=== PATIENT | female | born 1945 | race African-American/Black ===

== ENCOUNTER 2019-09-30 19:19 | Emergency (ER) | payer OTHER ==
[~2019-09-30] VITALS: Ht 167.6 cm; Wt 83.5 kg
[2019-09-30 21:26] LABS: ABSOLUTE NEUTROPHILS 2.4 thou/uL (1.4-8.2); EOSINOPHILS 1.3 % (0.0-3.0); HEMATOCRIT 42.8 % (37.0-47.0); HEMOGLOBIN 13.5 gm/dL (12.0-15.0); LYMPHOCYTES 37.3 % (24.0-44.0); MCH 27.1 pg (26.0-34.0); MCHC 31.6 g/dL (28.0-37.0); MCV 85.7 fL (80.0-100.0); MONOCYTES 9.9 % (1.0-8.0); PLATELET COUNT 245 thou/uL (150-400); POLYS 50.5 % (36.0-66.0); RBC 4.99 mil/uL (4.20-5.00); RDW 14.6 % (10.5-14.5); WBC 4.7 thou/uL (4.0-11.0)
[2019-09-30 21:38] LABS: ANION GAP 6 mmol/L (7-16); BUN 11 mg/dL (7-18); CALCIUM 9.1 mg/dL (8.5-10.1); CHLORIDE 104 mmol/L (98-107); CO2 30 mmol/L (21-32); CREATININE 0.8 mg/dL (0.6-1.0); GLUCOSE 89 mg/dL (74-106); POTASSIUM 5.1 mmol/L (3.5-5.1); SODIUM 140 mmol/L (136-145)
[2019-09-30 21:48] LABS: ALBUMIN 3.7 g/dL (3.4-5.0); SGOT 25 U/L (15-37); SGPT 17 U/L (30-65); TOTAL BILIRUBIN 0.3 mg/dL (<0.1-1.0); TOTAL PROTEIN 7.9 g/dL (6.4-8.2); TROPONIN-I <0.06 ng/mL (<0.06)
[2019-09-30 23:00] VITALS: BP 128/62
--- NOTE | 2019-10-01 12:34 | EKG ---
[facility] [place] [address] ELECTROCARDIOGRAM REPORT Name: LOTUS VEGA Room #: [facility]#: [id number] Admission: 09/30/19 Attend Phys: Discharge: 09/30/19 Date of : 47 Report #: [id number] THIS REPORT FOR: cc: FAM - No family physician/PCP FAM - No family physician/PCP Jelani Serrano MD [facility] THIS REPORT FOR: //name// [facility] ED Test Date: 2019-09-30 Test Time: 19:28:05 Pat Name: LOTUS VEGA Department: Room: Gender: F Civil Designer: ANISHA : 1945 Requested By: Alonso Perdomo Order Number: [id number] MD: Jelani Serrano Measurements Intervals [place] Rate: 70 P: -12 TN: 147 QRS: 27 QRSD: 94 T: 2 QT: 375 QTc: 405 Interpretive Statements Sinus rhythm Normal tracing No previous ECG available for comparison Electronically Signed On 10-01-2019 8:54:27 COMPATIBILITY TEST ENGINEER by Jelani Serrano [email or web address] <ELECTRONICALLY SIGNED> By: Jelani Serrano MD, [facility] 10/01/19 0854 27 27 Jelani Serrano MD, [facility] /EPI
== END 2019-09-30 23:00 | disposition home or self-care (01) ==
LOC: ER 19:19
PROVIDERS: Physician Assistant
DX: R07.9 Chest pain, unspecified (principal); F03.90 Unspecified dementia, unspecified severity, without behavioral disturbance, psychotic disturbance, mood disturbance, and anxiety; Z85.3 Personal history of malignant neoplasm of breast

== ENCOUNTER 2020-06-01 15:31 | Emergency (ER) | payer OTHER ==
[~2020-06-01] VITALS: Ht 162.6 cm; Wt 88.5 kg
--- NOTE | ~2020-06-01 | EMS ---
[address] [address] EMS Patient Care Report Name: LOTUS VEGA Room #: DEP ANDREEA Lombardi#: [id number] Admission: 06/01/20 Attend Phys: Discharge: 06/01/20 Date of : 47 Report #: [id number] THIS REPORT FOR: //name// Report Transmitted: 06/01/2020 20:54 EMS Care [place] [facility] [place] [id number] @ 06/01/2020 14:48 Incident Location [address] [place] [address] Patient LOTUS VEGA Female, 75 Years 1945 Patient Address [address] [place] [address] Patient History Dementia,Parkinson's Disease, Patient Allergies No known allergies, Patient Medications Trazodone, Chief Complaint GENERALIZED WEAKNESS Disposition Transported No Lights/[place] Dispatch Reason Falls Transported To [facility] Narrative DISPATCHED EMERGENT RESPONDED EMERGENT. ARRIVED ON SCENE WITHOUT INCIDENT. [facility] [address] [place] [address] EMS Patient Care Report Name: LOTUS VEGA [id number] Admission: 06/01/20 Attend Phys: Discharge: 06/01/20 Date of : 47 Report #: [id number] UPON ARRIVAL PATIENT IS FOUND ALERT BUT CONFUSED SEATED IN RESIDENCE WITH FAMILY AT SIDE. PATIENT REPORTED TO HAVE A HISTORY OF DEMENTIA AND CONFUSION AND IS PRESENTING HER BASELINE MENTATION. FAMILY STATED THAT PATIENT HAS BEEN HAVING SOME INCREASED SWELLING IN HER ANKLES SINCE SUNDAY. TODAY PATIENT WAS NOTED TO BE EXPERIENCING MORE GENERALIZED WEAKNESS THAN NORMAL AND HAS HAD 3 FALLS PRIOR TO CALLING EMS. PATIENT REPORTED TO HAVE NOT HIT HER HEAD, NO LOSS OF CONSCIOUSNESS, NO BLOOD THINNERS. PATIENTS FALLS HAVE BEEN IN HOME ON CARPET. FAMILY STATES THAT SHE HAS A HISTORY OF PARKISONS WELL. FAMILY IS REQUESTING SHE BE SEEN AT [facility] TODAY DUE TO THE INCREASED WEAKNESS AND SWELLING. PATIENT IS STROKE SCALE NEGATIVE AT THIS TIME. PATIENT DENIES ANY COMPLAINTS, DENIES CHEST PAIN SHORTNESS OF BREATH, DIZZINESS. PATIENT IS ASSISTED TO FEET AND WALK TO STRETCHER AT FRONT DOOR. PATIENT APPEARS TO BE AMBULATING WITHOUT DIFFICULTY. NO COMPLAINTS OR PAIN REPORTED WHEN WALKING. PATIENT SEATED ON STRETCHER, SECURED WITH ALL RESTRAINTS AND TAKEN TO AMBULANCE. PATIENT REPORTED THEY WOULD BE FOLLOWING TO FACILITY BY POV. EN ROUTE PATIENT DENIES ANY NEW COMPLAINTS. NO NEW COMPLAINTS OR SYMPTOMS OBSERVED UPON REASSESSMENT. VITALS MONITORED CONTINUOUSLY THROUGHOUT TRANSPORT. RADIO REPORT CALLED TO ED. UPON ARRIVAL PATIENT WAS TAKEN TO ED ROOM 5 WHERE PATIENT REPORT WAS GIVEN DIRECTLY TO RN AT BEDSIDE. PATIENT WAS ABLE TO SCOOT FROM STRETCHER TO BED WITHOUT DIFFICULTY. PATIENT CARE TRANSFERRED DIRECTLY TO RN AT BEDSIDE. PATIENT IN STABLE CONDITION AT TRANSFER OF CARE. Initial Vitals @15:09 @15:06P: 72,SpO2: 97, @15:16P: 97, @15:02P: 80,SpO2: 96, @15:11P: 88,SpO2: 100, @15:21P: 93, @14:57P: 78,R: 18,BP: 140/90,Pain: 0/10,GCS: 14,Glucose: 107,SpO2: 97,Revised Trauma: 12, @15:22P: 80,R: 18,BP: 166/80,GCS: 14,Glucose: 107,SpO2: 98,Revised Trauma: 12, @15:05P: 72,R: 18,BP: 142/76,Pain: 0/10,GCS: 14,SpO2: 98,Revised Trauma: 12, @15:02P: 79,SpO2: 96, Assessments @14:55MENTAL:Confused,Person Oriented,Place Oriented,SKIN:HEENT:Eyes: Left Pupil: 4-mm,Eyes: Right Pupil: 4-mm,Head/Face: No Abnormalities,Neck/Airway: No Abnormalities,LUNG SOUNDS:General: No Abnormalities,ABDOMEN:General: No Abnormalities,PELVIS//GI:No Abnormalities,EXTREMITIES:Left Leg: Edema,Right Leg: Edema,Capillary Refill: Left Upper: < 2 Sec,Left Arm: No Abnormalities,Right Arm: No Abnormalities,PULSE:Radial: 2+ Normal,NEURO:No [facility] [address] [place] [address] EMS Patient Care Report Name: LOTUS VEGA Room #: [facility] ANDREEA Lombardi#: [id number] Admission: 06/01/20 Attend Phys: Discharge: 06/01/20 Date of : 47 Report #: [id number] Abnormalities, Impression Generalized Weakness Procedures @15:00ALS AssessmentResponse: UnchangedSucceeded Timeline 14:47,Call Received 14:47,Psap Call 14:48,Dispatched 14:50,En Route 14:53,Initial Responder On Scene 14:53,On Scene 14:55,At Patient 14:57,BP: 140/90 M,PULSE: 78,RR: 18 R,SPO2: 97 Ox,ETCO2: ,B,PAIN: 0,GCS: 14, 15:00,ALS Assessment,Response: UnchangedSucceeded, 15:02,BP: / M,PULSE: 80,RR: R,SPO2: 96 Ox,ETCO2: ,BG: ,PAIN: ,GCS: , 15:02,BP: / M,PULSE: 79,RR: R,SPO2: 96 Ox,ETCO2: ,BG: ,PAIN: ,GCS: , 15:04,Depart Scene 15:05,BP: 142/76 M,PULSE: 72,RR: 18 R,SPO2: 98 Ox,ETCO2: ,BG: ,PAIN: 0,GCS: 14, 15:06,BP: / M,PULSE: 72,RR: R,SPO2: 97 Ox,ETCO2: ,BG: ,PAIN: ,GCS: , 15:09,BP: / M,PULSE: ,RR: R,SPO2: Ox,ETCO2: ,BG: ,PAIN: ,GCS: , 15:11,BP: / M,PULSE: 88,RR: R,SPO2: 100 Ox,ETCO2: ,BG: ,PAIN: ,GCS: , 15:16,BP: / M,PULSE: 97,RR: R,SPO2: Ox,ETCO2: ,BG: ,PAIN: ,GCS: , 15:21,BP: / M,PULSE: 93,RR: R,SPO2: Ox,ETCO2: ,BG: ,PAIN: ,GCS: , 15:22,At Destination 15:22,BP: 166/80 M,PULSE: 80,RR: 18 R,SPO2: 98 Ox,ETCO2: ,B,PAIN: ,GCS: 14, 15:43,Call Closed Disclaimer v1.1 Copyright 2020 [employer] This EMS Care Summary contains data elements from the applicable legal record (which may be displayed differently). It is designed to provide pertinent information for the following purposes: continuity of care, clinical quality, and state data reporting. The complete legal record is available to ED staff and administrators of the receiving hospital in [facility]'s Patient Tracker. All data is provided "as is."
[2020-06-01] MEDS ORDERED: TRAZODONE HCL50 MG PO (15:51)
[2020-06-01 16:22] LABS: ABSOLUTE NEUTROPHILS 3.2 thou/uL (1.4-8.2); BASOPHILS 0.8 % (0.0-2.0); EOSINOPHILS 1.8 % (0.0-3.0); HEMOGLOBIN 13.1 gm/dL (12.0-15.0); LYMPHOCYTES 27.1 % (24.0-44.0); MCH 28.1 pg (26.0-34.0); MCHC 32.7 g/dL (28.0-37.0); MCV 85.9 fL (80.0-100.0); MONOCYTES 8.6 % (1.0-8.0); PLATELET COUNT 226 thou/uL (150-400); POLYS 61.7 % (36.0-66.0); RBC 4.66 mil/uL (4.20-5.00); RDW 14.1 % (10.5-14.5); WBC 5.1 thou/uL (4.0-11.0)
[2020-06-01 16:27] LABS: ANION GAP 8 mmol/L (7-16); BUN 12 mg/dL (7-18); CALCIUM 9.5 mg/dL (8.5-10.1); CHLORIDE 104 mmol/L (98-107); CO2 28 mmol/L (21-32); CREATININE 0.7 mg/dL (0.6-1.0); GLUCOSE 105 mg/dL (74-106); POTASSIUM 3.7 mmol/L (3.5-5.1); SODIUM 140 mmol/L (136-145)
[2020-06-01 16:36] LABS: MAGNESIUM 1.9 mg/dL (1.8-2.4); TROPONIN-I <0.06 ng/mL (<0.06)
[2020-06-01 17:32] LABS: URINE BILIRUBIN NEGATIVE (Negative); URINE BLOOD NEGATIVE (Negative); URINE CLARITY CLEAR; URINE COLOR YELLOW; URINE GLUCOSE-RANDOM* NEGATIVE (Negative); URINE KETONES NEGATIVE (Negative); URINE LEUKOCYTES-REFLEX 2+ (Negative); URINE NITRITE-REFLEX NEGATIVE (Negative); URINE PROTEIN (DIPSTICK) NEGATIVE (Negative); URINE UROBILINOGEN 0.2 E.U./dl (0.2-1.0)
[2020-06-01 17:41] LABS: SQUAMOUS 0-3 Few /LPF (0-3)
[2020-06-01 17:42] LABS: CASTS None Seen /LPF (None Seen); CRYSTALS None Seen /LPF (None Seen); URINE RBC None Seen /HPF (0-2); URINE WBC-REFLEX 6-15 Few /HPF (0-5)
[2020-06-01] MEDS ORDERED: KEFLEX500 M2 PO (18:54)
[2020-06-01 19:23] VITALS: BP 136/68
--- NOTE | 2020-06-02 07:32 | EKG ---
[facility] [place] [address] ELECTROCARDIOGRAM REPORT Name: GARYLOTUS Kebede [facility] [id number] Admission: 06/01/20 Attend Phys: Discharge: 06/01/20 Date of : 47 Report #: [id number] THIS REPORT FOR: cc: Chasidy Hammond MD, Stephanie M. MD Santiago, Patrick MD [facility] ~ THIS REPORT FOR: //name// [facility] ED Test Date: 2020-06-01 Test Time: 17:15:47 Pat Name: LOTUS VEGA Department: Room: Gender: F Fusing Machine Operator: lina : 1945 Requested By: Sergio Lorenzana Order Number: [id number] : Klaus Goldman Measurements Intervals [place] Rate: 74 P: 41 DC: 160 QRS: 24 QRSD: 105 T: -2 QT: 405 QTc: 450 Interpretive Statements Sinus rhythm Artifact in lead(s) I,II,III,aVR,aVL,V1,V2 Compared to ECG 09/30/2019 19:28:05 No significant changes Electronically Signed On 06-02-2020 7:32:15 CDT by Klaus Goldman [email or web address] <ELECTRONICALLY SIGNED> By: Klaus Goldman MD, FACC 06/02/20 0732 14 171 Klaus Goldman MD, FAC /EPI
== END 2020-06-01 19:38 | disposition home or self-care (01) ==
LOC: ER 15:31
PROVIDERS: Emergency Medicine
DX: N39.0 Urinary tract infection, site not specified (principal); Z79.899 Other long term (current) drug therapy

== ENCOUNTER → 2020-08-10 | Emergency (ER) | payer OTHER ==
[~2020-08-10] VITALS: Ht 170.2 cm; Wt 88.0 kg
[~2020-08-10] MED LIST: KEFLEX500 M2 PO; TRAZODONE HCL50 MG PO
--- NOTE | ~2020-08-10 | EMS ---
[facility] [address] [place] [address] EMS Patient Care Report Name: LOTUS EVGA Room #: REG ANDREEA Lombardi#: [id number] Admission: 08/10/20 Attend Phys: Discharge: Date of : 47 Report #: [id number] THIS REPORT FOR: //name// Report Transmitted: 08/10/2020 04:12 EMS Care Summary [facility] Incident [id number] @ 08/10/2020 01:42 Incident Location [facility] [address] [place] [address] Patient LOTUS VEGA Female, 75 Years 1945 Patient Address [address] [place] [address] Patient History Dementia,Parkinson's Disease, Patient Allergies No known allergies, Patient Medications Trazodone, Chief Complaint controlled fall Disposition Transported No Lights/[place] Dispatch Reason Unconscious/Fainting Transported To [facility] Narrative S- Family states helping pt out of bathroom and pt "fell out." Family states pt appeared to faint. Family states assisted pt in fall to floor. Family states pt was unresponsive for a few moments. Family states pt opened eyes as EMS [facility] [address] [place] [address] EMS Patient Care Report Name: LOTUS VEGA Room #: REG ANDREEA Lombardi#: [id number] Admission: 08/10/20 Attend Phys: Discharge: Date of : 47 Report #: [id number] arrived. Family states extreme dementia, pt is nonverbal. Family denies any major medical hx. Pt was calm and cooperative during transport. Pt did not display any signs of pain during rapid head to toe. Family states pt negative for fever, chills, weakness, cough. O- Pt found supine on floor of hallway on first floor apartment in no apparent distress upon arrival, alert and oriented. Airway patent, breathing adequate, pulses present. Physical assessment as noted. A- Vitals check and transport to ED. P- [employer] [facility] dispatched to address on 75 yo female w/ noted hx suffering from controlled fall. Arrived on scene to find pt on floor. Pt sat upright on her own, w/o incident. Assisted pt to standing and walked to cot, w/o incident. Secured to cot and moved to ambulance. Baseline vitals obtained, cardiac monitoring initiated. Transported to [facility], w/o incident. Pt and vitals monitored en route. Arrived at destination and moved pt to ER. Transferred pt to bed, using sheet, w/ assistance from staff, w/o incident. Report given and care transferred to ED RN. Pt left in stable condition. Squad 52 cleared. Initial Vitals @02:15P: 55, @02:06P: 58,[place] Suspected: false @02:09P: 58,R: 16,CO: 10,SpO2: 100, @02:10P: 55,R: 16,SpO2: 100, @02:05P: 59, @02:10P: 58,R: 16,SpO2: 97, @02:02P: 57,R: 16,BP: 134/107,Pain: 0/10,GCS: 12,SpO2: 99,Revised Trauma: 11, @02:12P: 56,R: 16,BP: 133/83,Pain: 0/10,GCS: 12,SpO2: 99,Revised Trauma: 11,[place] Suspected: false Assessments @02:12MENTAL:Confused,SKIN:HEENT:Head/Face: No Abnormalities,Neck/Airway: No Abnormalities,LUNG SOUNDS:General: No Abnormalities,Left Upper: No Abnormalities,Right Upper: No Abnormalities,Left Lower: No Abnormalities,Right Lower: No Abnormalities,ABDOMEN:General: No Abnormalities,Left Upper: No Abnormalities,Right Upper: No Abnormalities,Left Lower: No Abnormalities,Right Lower: No Abnormalities,PELVIS//GI:No Abnormalities,EXTREMITIES:Left Arm: No Abnormalities,Right Arm: No Abnormalities,Left Leg: No Abnormalities,Right Leg: No Abnormalities,PULSE:NEURO:No Abnormalities, Impression No Complaints or Injury/Illness Noted Procedures [address] [address] EMS Patient Care Report Name: LOTUS VEGA Room #: [facility] Lombardi#: [id number] Admission: 08/10/20 Attend Phys: Discharge: Date of : 47 Report #: [id number] @02:11ALS AssessmentResponse: UnchangedSucceeded@02:113-Lead ECGResponse: UnchangedSucceeded Timeline 01:39,Call Received 01:39,Psap Call 01:42,Dispatched 01:46,En Route 01:50,Initial Responder On Scene 01:50,On Scene 01:52,At Patient 02:02,BP: 134/107 M,PULSE: 57,RR: 16 R,SPO2: 99 Ox,ETCO2: ,BG: ,PAIN: 0,GCS: 12, 02:02,Depart Scene 02:05,BP: / M,PULSE: 59,RR: R,SPO2: Ox,ETCO2: ,BG: ,PAIN: ,GCS: , 02:06,BP: / M,PULSE: 58,RR: R,SPO2: Ox,ETCO2: ,BG: ,PAIN: ,GCS: , 02:09,BP: / M,PULSE: 58,RR: 16 R,SPO2: 100 Ox,ETCO2: ,BG: ,PAIN: ,GCS: , 02:10,BP: / M,PULSE: 55,RR: 16 R,SPO2: 100 Ox,ETCO2: ,BG: ,PAIN: ,GCS: , 02:10,BP: / M,PULSE: 58,RR: 16 R,SPO2: 97 Ox,ETCO2: ,BG: ,PAIN: ,GCS: , 02:11,ALS Assessment,Response: UnchangedSucceeded, 02:11,3-Lead ECG,Response: UnchangedSucceeded, 02:12,BP: 133/83 M,PULSE: 56,RR: 16 R,SPO2: 99 Ox,ETCO2: ,BG: ,PAIN: 0,GCS: 12, 02:15,BP: / M,PULSE: 55,RR: R,SPO2: Ox,ETCO2: ,BG: ,PAIN: ,GCS: , 02:17,At Destination 02:25,Transfer Patient 02:32,Call Closed Disclaimer v1.1 Copyright 2020 [employer] This EMS Care Summary contains data elements from the applicable legal record (which may be displayed differently). It is designed to provide pertinent information for the following purposes: continuity of care, clinical quality, and state data reporting. The complete legal record is available to ED staff and administrators of the receiving hospital in [employer]'s Patient Tracker. All data is provided "as is."
[2020-08-10 03:26] LABS: HEMATOCRIT 43.7 % (37.0-47.0); HEMOGLOBIN 14.2 gm/dL (12.0-15.0); MCH 27.3 pg (26.0-34.0); MCHC 32.5 g/dL (28.0-37.0); MCV 83.9 fL (80.0-100.0); RBC 5.21 mil/uL (4.20-5.00); RDW 13.5 % (10.5-14.5); WBC 3.3 thou/uL (4.0-11.0)
[2020-08-10 03:29] LABS: ANION GAP 9 mmol/L (7-16); BUN 8 mg/dL (7-18); CALCIUM 9.4 mg/dL (8.5-10.1); CHLORIDE 103 mmol/L (98-107); CO2 27 mmol/L (21-32); GLUCOSE 100 mg/dL (74-106); POTASSIUM 3.8 mmol/L (3.5-5.1); SODIUM 139 mmol/L (136-145)
[2020-08-10 03:38] LABS: TROPONIN-I <0.06 ng/mL (<0.06)
[2020-08-10 04:06] VITALS: BP 109/68
--- NOTE | 2020-08-10 07:17 | EKG ---
[place] [address] [facility] [place] [address] ELECTROCARDIOGRAM REPORT Name: GARYLOTUS Room #: [facility] [id number] Admission: 08/10/20 Attend Phys: Discharge: Date of : 47 Report #: [id number] [facility] ED Test Date: 2020-08-10 Test Time: 02:35:26 Pat Name: LOTUS VEGA Department: Room: Gender: F Nut Former: : 1945 Requested By: Lui sM Torres Order Number: [id number] MD: Klaus Goldman Measurements Intervals [place] Rate: 55 P: 6 TN: 149 QRS: 11 QRSD: 100 T: 8 QT: 417 QTc: 399 Interpretive Statements Sinus rhythm Baseline wander in lead(s) V4 Compared to ECG 06/01/2020 17:15:47 No significant changes Electronically Signed On 08-10-2020 7:17:38 HARPOON ENGAGEMENT PLANNING OPERATOR by Klaus Goldman [email or web address] <ELECTRONICALLY SIGNED> By: Klaus Goldman MD, [facility] 08/10/20 0717 0235 [id number] Klaus Goldman MD, FACC /EPI
== END ==
LOC: ER 02:22
PROVIDERS: Emergency Medicine
DX: R55 Syncope and collapse (principal); F03.90 Unspecified dementia, unspecified severity, without behavioral disturbance, psychotic disturbance, mood disturbance, and anxiety; Z85.3 Personal history of malignant neoplasm of breast